=== PATIENT | female | born 1990 | race Caucasian/White ===

== ENCOUNTER 2021-02-02 18:20 | Emergency (ER) | payer OTHER, SELFPAY ==
[2021-02-02 18:41] VITALS: BP 143/79; PULSE 74; RESP 18; TEMP 37; O2SAT 98; BMI 31.8
--- NOTE | 2021-02-02 18:41 | ED_ITS ---
HPI - General Adult General Chief complaint: Urogenital-Female <Catia Liang NP - Last Filed: 02/02/21 18:43> Stated complaint: lower abd pain + lower back pain <Catia Liang NP - Last Filed: 02/02/21 18:43> Time Seen by Provider: 02/02/21 18:41 <Catia Liang NP - Last Filed: 02/02/21 18:43> Source: patient <MEIR Fontaine - Last Filed: 02/02/21 21:13> Mode of arrival: ambulatory <MEIR Fontaine - Last Filed: 02/02/21 21:13> History of Present Illness HPI narrative: 30-year-old female with no significant past medical history presenting to the ED complaining of suprapubic and low back pain x1 week with dysuria and positive urine dipstick at work today and last week. Denies nausea/vomiting, flank pain, fever/chills, vaginal bleeding/discharge. Is sexually active with 1 male partner, denies concern for STIs <MEIR Fontaine - Last Filed: 02/02/21 21:13> Onset (ago): day(s) <MEIR Fontaine - Last Filed: 02/02/21 21:13> Related Data Home medications: Previous Rx's Medication Instructions Recorded phenazopyridine 200 mg tablet 200 mg PO TID PRN #6 tab 02/02/21 (Pyridium) <Catia Liang NP - Last Filed: 02/02/21 18:43> Allergies/adverse reactions: Allergies Allergy/AdvReac Type Severity Reaction Status Date / Time No Known Allergies Allergy Verified 02/02/21 19:25 <Catia Liang NP - Last Filed: 02/02/21 18:43> Review of Systems Review of Systems: Constitutional: No Fever, No Chills, No Fatigue, No Malaise ENT/Mouth: No Ear Pain, No Nasal Congestion, No sore throat Eyes: No Eye Pain, No Swelling, No Redness, No Vision Changes Cardiovascular: No Chest Pain, No SOB Respiratory: No Cough, No Dyspnea Gastrointestinal: No Nausea, No Vomiting, No Diarrhea, No Constipation, + Abdominal pain Genitourinary: No irregular bleeding, + Dysuria, No Urinary Frequency, No H ematuria, No Urgency, No Flank Pain, No Urinary Flow Changes, No Hesitancy Musculoskeletal: + low back pain, No Myalgias, No Joint Swelling Skin: No Skin Lesions, No rash Neuro: No Weakness, No Numbness, No Paresthesias, No Headache <MEIR Fontaine - Last Filed: 02/02/21 21:13> Yes all other systems are reviewed and are negative <MEIR Fontaine - Last Filed: 02/02/21 21:13> [facility] Past Medical History Attestation statement: The following information was validated with the patient. <MEIR Fontaine - Last Filed: 02/02/21 21:13> Social History Social History: Social History Advance Directives: No Advance Directives Information Provided: Yes <Catia Liang NP - Last Filed: 02/02/21 18:43> Physical Exam Vital Signs: Vital Signs: Last Vital Signs Temp 98.6 F 02/02/21 18:41 Pulse 74 02/02/21 18:41 Resp 18 02/02/21 18:41 BP 143/79 H 02/02/21 18:41 Pulse Ox 98 02/02/21 18:41 Body Mass Index 31.8 <Catia Liang NP - Last Filed: 02/02/21 18:43> Vital Signs: Last Vital Signs Temp 98.6 F 02/02/21 18:41 Pulse 74 02/02/21 18:41 Resp 18 02/02/21 18:41 BP 143/79 H 02/02/21 18:41 Pulse Ox 98 02/02/21 18:41 Body Mass Index 31.8 <MEIR Fontaine - Last Filed: 02/02/21 21:13> Const: General: cooperative, healthy appearing and no acute distress <MEIR Fontaine - Last Filed: 02/02/21 21:13> Orientation/consciousness: patient oriented x3 <MEIR Fontaine - Last Filed: 02/02/21 21:13> Limitations: no limitations <MEIR Fontaine Last Filed: 02/02/21 21:13> HENMT: Head: Yes normal to inspection <MEIR Fontaine - Last Filed: 02/02/21 21:13> Ears: hearing grossly normal bilaterally <Ernestina Manzano [place] - Last Filed: 02/02/21 21:13> General nose exam: Normal external nose present <Ernestina Manzano [facility] Last Filed: 02/02/21 21:13> Face and sinus: Yes normal facial exam <Ernestina Manzano [facility] Last Filed: 02/02/21 21:13> Eyes: General: appearance normal, both eyes and all related structures <Ernestina Manzano [facility] Last Filed: 02/02/21 21:13> EOM: EOMs intact bilaterally <Ernestina Manzano [facility] Last Filed: 02/02/21 21:13> Neck: Neck: Yes normal visual inspection and Yes no meningeal signs <Ernestina Manzano [facility] Last Filed: 02/02/21 21:13> Resp: Effort & Inspection: normal respiratory effort and no respiratory distress <Ernestina Manzano [facility] Last Filed: 02/02/21 21:13> Cardio: Rate: regular rate <Ernestina Manzano [facility] Last Filed: 02/02/21 21:13> Heart sounds: S1 normal heart sound present and S2 normal heart sound present <Ernestina Manzano [facility] Last Filed: 02/02/21 21:13> GI: Inspection: Yes normal to inspection <Ernestina Manzano [facility] Last Filed: 02/02/21 21:13> Palpation (GI): Soft to palpation, nontender, no guarding and not rigid <Ernestina Manzano [place] - Last Filed: 02/02/21 21:13> : General: Yes no CVA tenderness <Ernestina Manzano [facility] Last Filed: 02/02/21 21:13> Back/Spine/Pelvis: Back: no CVA tenderness <Ernestina Manzano [place] - Last Filed: 02/02/21 21:13> Skin: Rashes: no rashes <Ernestina Manzano IA - Last Filed: 02/02/21 21:13> Wounds: no wounds <Ernestina Manzano [facility] Last Filed: 02/02/21 21:13> Neuro: General: patient oriented x3 and no meningeal signs <Ernestina Manzano IA - Last Filed: 02/02/21 21:13> Gait exam (Neuro): Normal gait present <MEIR Fontaine - Last Filed: 02/02/21 21:13> Extrem: General: Yes normal to inspection <MEIR Fontanie - Last Filed: 02/02/21 21:13> Course Course Course Narrative: 1839-This is a rapid medical exam. 30 yo female here with complaints of dysuria, low back pain and lower pelvic pain since Tuesday. Did urine dip and was + at work. No fevers, chills, vomiting. Will check UA, ur . Deferred additional HPI, ROS and PE to primary provider. <Catia Liang NP - Last Filed: 02/02/21 18:43> 1840-This is a rapid medical exam. 30 yo female here with complaints of dysuria, low back pain and lower pelvic pain since Tuesday. Did urine dip and was + at work. No fevers, chills, vomiting. Will check UA, ur . Deferred additional HPI, ROS and PE to primary provider. -UA and urine negative. This was discussed with patient, she is requesting labs -2110--Labs unremarkable. worrisome signs and symptoms and strict return precautions discussed with patient. <MEIR Fontaine - Last Filed: 02/02/21 21:13> Medical Decision Making [facility] Narrative Medical decision making narrative: 30-year-old female with no significant past medical history presenting to the ED complaining of suprapubic and low back pain x1 week with dysuria and positive urine dipstick at work today and last week. On exam VSS, NAD/well- appearing, abdomen soft/nontender, no CVAT. Concern for UTI. Lower concern for pyelo/renal stone STI. low concern for appendicitis/diverticulitis Plan: UA, <MEIR Fontaine - Last Filed: 02/02/21 21:13> Lab Data Result diagrams: : 02/02/21 20:13 02/02/21 20:13 <Catia Liang NP - Last Filed: 02/02/21 18:43> Labs: Lab Results 02/02/21 02/02/21 02/02/21 Range/Units 18:55 18:55 20:13 WBC 9.8 (4.8-10.8) X10*3/uL RBC 4.26 (4.20-5.50) X10*6/uL Hgb 12.3 (12.0-16.0) g/dl Hct 37.1 (37-47) % MCV 87.1 (80-98) fL MCH 28.9 (27.0-33.0) pg MCHC 33.2 (31.0-35.0) g/dl RDW 13.1 (11.0-16.0) % Plt Count 314 (160-400) X10*3/uL MPV 9.3 L (9.4-12.3) fL Immature Gran % (Auto) 0.2 (0.0-0.4) % Neut % (Auto) 64.0 (45-73) % Lymph % (Auto) 27.5 (20-40) % [place] % (Auto) 6.3 (2-11) % Eos % (Auto) 1.6 (0-4) % Baso % (Auto) 0.4 (0-2) % Lymph # (Auto) 2.7 (1.2-4.9) X10*3/uL [place] # (Auto) 0.6 (0.1-1.2) X10*3/uL Eos # (Auto) 0.2 (0.0-0.4) X10*3/uL Baso # (Auto) 0.0 (0.0-0.2) X10*3/uL Abs Immat Gran (auto) 0.02 (0.00-0.03) X10*3/uL Absolute Neuts (auto) 6.3 (2.0-8.3) X10*3/uL Absolute Nucleated RBC 0.000 (0.0-0.012) X10*3/uL Nucleated RBC % (auto) 0.0 (0.0-0.2) /100WBC Sodium (135-145) mmol/L Potassium (3.3-5.1) mmol/L Chloride (96-108) mmol/L Carbon Dioxide (22-29) mmol/L Anion Gap (12-20) BUN (9-16) mg/dL Creatinine (0.5-1.4) mg/dL Estim Creat Clear Calc Estimated GFR Random Glucose (60-115) mg/dL Calcium (8.4-10.2) mg/dL Total Bilirubin (0.0-1.0) mg/dL Direct Bilirubin (0.0-0.5) mg/dL AST (5-31) U/L ALT (0-31) U/L Alkaline Phosphatase (39-117) U/L Total Protein (6.5-8.0) g/dL Albumin (3.5-5.0) g/dL Lipase (8-78) U/L Urine Color YELLOW Urine Appearance CLEAR Urine pH 6.0 (5.0-8.0) Ur Specific [place] >= 1.030 H (1.005-1.025) Urine Protein NEG (NEG-TRACE) MG/DL Urine Glucose (UA) NEG (NEG) MG/DL Urine Ketones NEG (NEG) MG/DL Urine Blood NEG (NEG) Urine Nitrite NEG (NEG) Ur Leukocyte Esterase NEG (NEG) Urine Test NEGATIVE (NEGATIVE) 02/02/21 Range/Units 20:13 WBC (4.8-10.8) X10*3/uL RBC (4.20-5.50) X10*6/uL Hgb (12.0-16.0) g/dl Hct (37-47) % MCV (80-98) fL MCH (27.0-33.0) pg MCHC (31.0-35.0) g/dl RDW (11.0-16.0) % Plt Count (160-400) X10*3/uL MPV (9.4-12.3) fL Immature Gran % (Auto) (0.0-0.4) % Neut % (Auto) (45-73) % Lymph % (Auto) (20-40) % [place] % (Auto) (2-11) % Eos % (Auto) (0-4) % Baso % (Auto) (0-2) % Lymph # (Auto) (1.2-4.9) X10*3/uL [place] # (Auto) (0.1-1.2) X10*3/uL Eos # (Auto) (0.0-0.4) X10*3/uL Baso # (Auto) (0.0-0.2) X10*3/uL Abs Immat Gran (auto) (0.00-0.03) X10*3/uL Absolute Neuts (auto) (2.0-8.3) X10*3/uL Absolute Nucleated RBC (0.0-0.012) X10*3/uL Nucleated RBC % (auto) (0.0-0.2) /100WBC Sodium 139 (135-145) mmol/L Potassium 4.2 (3.3-5.1) mmol/L Chloride 107 (96-108) mmol/L Carbon Dioxide 25 (22-29) mmol/L Anion Gap 11 L (12-20) BUN 20 H (9-16) mg/dL Creatinine 0.75 (0.5-1.4) mg/dL Estim Creat Clear Calc 108.9 Estimated GFR > 60 Random Glucose 97 (60-115) mg/dL Calcium 9.9 (8.4-10.2) mg/dL Total Bilirubin 0.2 (0.0-1.0) mg/dL Direct Bilirubin < 0.2 (0.0-0.5) mg/dL AST 22 (5-31) U/L ALT 23 (0-31) U/L Alkaline Phosphatase 70 (39-117) U/L Total Protein 7.6 (6.5-8.0) g/dL Albumin 4.5 (3.5-5.0) g/dL Lipase 22 (8-78) U/L Urine Color Urine Appearance Urine pH (5.0-8.0) Ur Specific [place] (1.005-1.025) Urine Protein (NEG-TRACE) MG/DL Urine Glucose (UA) (NEG) MG/DL Urine Ketones (NEG) MG/DL Urine Blood (NEG) Urine Nitrite (NEG) Ur Leukocyte Esterase (NEG) Urine Test (NEGATIVE) <Catia Liang NP - Last Filed: 02/02/21 18:43> Lab Results 02/02/21 02/02/21 02/02/21 Range/Units 18:55 18:55 20:13 WBC 9.8 (4.8-10.8) X10*3/uL RBC 4.26 (4.20-5.50) X10*6/uL Hgb 12.3 (12.0-16.0) g/dl Hct 37.1 (37-47) % MCV 87.1 (80-98) fL MCH 28.9 (27.0-33.0) pg MCHC 33.2 (31.0-35.0) g/dl RDW 13.1 (11.0-16.0) % Plt Count 314 (160-400) X10*3/uL MPV 9.3 L (9.4-12.3) fL Immature Gran % (Auto) 0.2 (0.0-0.4) % Neut % (Auto) 64.0 (45-73) % Lymph % (Auto) 27.5 (20-40) % [place] % (Auto) 6.3 (2-11) % Eos % (Auto) 1.6 (0-4) % Baso % (Auto) 0.4 (0-2) % Lymph # (Auto) 2.7 (1.2-4.9) X10*3/uL [place] # (Auto) 0.6 (0.1-1.2) X10*3/uL Eos # (Auto) 0.2 (0.0-0.4) X10*3/uL Baso # (Auto) 0.0 (0.0-0.2) X10*3/uL Abs Immat Gran (auto) 0.02 (0.00-0.03) X10*3/uL Absolute Neuts (auto) 6.3 (2.0-8.3) X10*3/uL Absolute Nucleated RBC 0.000 (0.0-0.012) X10*3/uL Nucleated RBC % (auto) 0.0 (0.0-0.2) /100WBC Sodium (135-145) mmol/L Potassium (3.3-5.1) mmol/L Chloride (96-108) mmol/L Carbon Dioxide (22-29) mmol/L Anion Gap (12-20) BUN (9-16) mg/dL Creatinine (0.5-1.4) mg/dL Estim Creat Clear Calc Estimated GFR Random Glucose (60-115) mg/dL Calcium (8.4-10.2) mg/dL Total Bilirubin (0.0-1.0) mg/dL Direct Bilirubin (0.0-0.5) mg/dL AST (5-31) U/L ALT (0-31) U/L Alkaline Phosphatase (39-117) U/L Total Protein (6.5-8.0) g/dL Albumin (3.5-5.0) g/dL Lipase (8-78) U/L Urine Color YELLOW Urine Appearance CLEAR Urine pH 6.0 (5.0-8.0) Ur Specific [place] >= 1.030 H (1.005-1.025) Urine Protein NEG (NEG-TRACE) MG/DL Urine Glucose (UA) NEG (NEG) MG/DL Urine Ketones NEG (NEG) MG/DL Urine Blood NEG (NEG) Urine Nitrite NEG (NEG) Ur Leukocyte Esterase NEG (NEG) Urine Test NEGATIVE (NEGATIVE) 02/02/21 Range/Units 20:13 WBC (4.8-10.8) X10*3/uL RBC (4.20-5.50) X10*6/uL Hgb (12.0-16.0) g/dl Hct (37-47) % MCV (80-98) fL MCH (27.0-33.0) pg MCHC (31.0-35.0) g/dl RDW (11.0-16.0) % Plt Count (160-400) X10*3/uL MPV (9.4-12.3) fL Immature Gran % (Auto) (0.0-0.4) % Neut % (Auto) (45-73) % Lymph % (Auto) (20-40) % [place] % (Auto) (2-11) % Eos % (Auto) (0-4) % Baso % (Auto) (0-2) % Lymph # (Auto) (1.2-4.9) X10*3/uL [place] # (Auto) (0.1-1.2) X10*3/uL Eos # (Auto) (0.0-0.4) X10*3/uL Baso # (Auto) (0.0-0.2) X10*3/uL Abs Immat Gran (auto) (0.00-0.03) X10*3/uL Absolute Neuts (auto) (2.0-8.3) X10*3/uL Absolute Nucleated RBC (0.0-0.012) X10*3/uL Nucleated RBC % (auto) (0.0-0.2) /100WBC Sodium 139 (135-145) mmol/L Potassium 4.2 (3.3-5.1) mmol/L Chloride 107 (96-108) mmol/L Carbon Dioxide 25 (22-29) mmol/L Anion Gap 11 L (12-20) BUN 20 H (9-16) mg/dL Creatinine 0.75 (0.5-1.4) mg/dL Estim Creat Clear Calc 108.9 Estimated GFR > 60 Random Glucose 97 (60-115) mg/dL Calcium 9.9 (8.4-10.2) mg/dL Total Bilirubin 0.2 (0.0-1.0) mg/dL Direct Bilirubin < 0.2 (0.0-0.5) mg/dL AST 22 (5-31) U/L ALT 23 (0-31) U/L Alkaline Phosphatase 70 (39-117) U/L Total Protein 7.6 (6.5-8.0) g/dL Albumin 4.5 (3.5-5.0) g/dL Lipase 22 (8-78) U/L Urine Color Urine Appearance Urine pH (5.0-8.0) Ur Specific [place] (1.005-1.025) Urine Protein (NEG-TRACE) MG/DL Urine Glucose (UA) (NEG) MG/DL Urine Ketones (NEG) MG/DL Urine Blood (NEG) Urine Nitrite (NEG) Ur Leukocyte Esterase (NEG) Urine Test (NEGATIVE) <MEIR Fontaine - Last Filed: 02/02/21 21:13> Discharge Plan Discharge Clinical Impression: Dysuria <Catia Liang NP - Last Filed: 02/02/21 18:43> Patient Disposition: Home, Self-Care <Catia Liang NP - Last Filed: 02/02/21 18:43> Instructions: Dysuria (ED) <Catia Liang NP - Last Filed: 02/02/21 18:43> Additional Instructions: Your blood work, urine were negative today in the ED Your urine was negative Pyridium will help with urinary discomfort If you are still experiencing symptoms have your urine retested at her primary care doctor's office in 3-5 days Picture in taking plenty of fluids If her symptoms persist or worsen, you have nausea/vomiting, develops abdominal pain, or flank pain return to the ED <Catia Liang NP - Last Filed: 02/02/21 18:43> Prescriptions: New phenazopyridine [Pyridium] 200 mg tablet 200 mg PO TID PRN (Reason: pain) Qty: 6 RF: 0 <Catia Liang NP - Last Filed: 02/02/21 18:43> Referrals: Oneida Holliday MD [Primary Care Provider] - 2 days <Catia Liang NP - Last Filed: 02/02/21 18:43>
[2021-02-02 19:02] LABS: Appearance Urine CLEAR; Color Urine YELLOW; Glucose Urine UA NEG (NEG); Leukocyte Esterase Urine NEG (NEG); Nitrite Urine NEG (NEG); Specific Gravity - Urine >= 1.030 (1.005-1.025); Urine Blood NEG (NEG); Urine Ketones NEG (NEG); Urine Protein NEG (NEG-TRACE)
[2021-02-02 19:04] LABS: UPreg QC Valid YES; Urine Pregnancy NEGATIVE (NEGATIVE)
[2021-02-02 20:17] LABS: MANUAL DIFF FLAG NO
[2021-02-02 20:19] LABS: Basophils Percent Auto 0.4 % (0-2); Eosinophils Absolute Auto 0.2 X10*3/uL (0.0-0.4); Eosinophils Percent Auto 1.6 % (0-4); Hematocrit 37.1 % (37-47); Hemoglobin 12.3 g/dl (12.0-16.0); Imm Gran Abs Auto 0.02 X10*3/uL (0.00-0.03); Imm Gran Pct Auto 0.2 % (0.0-0.4); Lymphocytes Absolute Auto 2.7 X10*3/uL (1.2-4.9); Lymphocytes Percent Auto 27.5 % (20-40); Mean Corpuscular HGB Conc 33.2 g/dl (31.0-35.0); Mean Corpuscular Hemoglobin 28.9 pg (27.0-33.0); Mean Corpuscular Volume 87.1 fL (80-98); Mean Platelet Volume 9.3 fL (9.4-12.3); Monocytes Absolute Auto 0.6 X10*3/uL (0.1-1.2); Monocytes Percent Auto 6.3 % (2-11); Neutrophils Absolute Auto 6.3 X10*3/uL (2.0-8.3); Platelet Count 314 X10*3/uL (160-400); Red Blood Count 4.26 X10*6/uL (4.20-5.50); Red Cell Distribution Width 13.1 % (11.0-16.0); White Blood Count 9.8 X10*3/uL (4.8-10.8)
[2021-02-02] MEDS: Phenazopyridine HCL 200 MG TABLET PO (20:19)
[2021-02-02 20:41] LABS: Alanine Aminotransferase 23 U/L (0-31); Albumin Level 4.5 g/dL (3.5-5.0); Alkaline Phosphatase 70 U/L (39-117); Anion Gap 11 (12-20); Aspartate Amino Transferase 22 U/L (5-31); Bilirubin Direct < 0.2 mg/dL (0.0-0.5); Bilirubin Total 0.2 mg/dL (0.0-1.0); Blood Urea Nitrogen 20 mg/dL (9-16); Calcium 9.9 mg/dL (8.4-10.2); Carbon Dioxide 25 mmol/L (22-29); Chloride 107 mmol/L (96-108); Creatinine Clr Calc Pharmacy 108.9; Estimated Glomerular Filt Rate > 60; Glucose Random 97 mg/dL (60-115); Lipase 22 U/L (8-78); Potassium 4.2 mmol/L (3.3-5.1); Sodium 139 mmol/L (135-145); Total Protein 7.6 g/dL (6.5-8.0)
[2021-02-03 03:26] LABS: CT PCR NOT DETECTED (Not Detect.); NG PCR NOT DETECTED (Not Detect.)
== END 2021-02-02 22:01 | disposition home or self-care (01) ==
PROVIDERS: Physician Assistant; Emergency Provider Internal Medicine; PCP Internal Medicine
DX: R30.0 Dysuria (principal); M54.50 Low back pain, unspecified; Z79.899 Other long term (current) drug therapy
CPT/HCPCS: 36415; 80048; 80076; 81003; 81025; 83690; 85025; 87491; 87591; 99283; 99284